=== PATIENT | male | born 1945 | race Caucasian/White ===

== ENCOUNTER 2017-09-15 10:49 | Observation (INO) | payer MEDICARE ==
[2017-09-15] VITALS (303 sets, daily range): BP systolic 112–136; BP diastolic 68–85; PULSE 55–70; TEMP 97.3–98.1; O2SAT 87–99
[~2017-09-15] VITALS: Ht 177.8 cm; Wt 108.0 kg
[2017-09-15] MEDS ORDERED: VITAMIN D 400400 IU PO (11:10)
[2017-09-15] MEDS ORDERED: NATURE'S BLEND500 M1 PO (11:10)
[2017-09-15] MEDS ORDERED: VITAMINC1000TA PO (11:10)
[2017-09-15] MEDS ORDERED: ASPIRIN 81M81 MG/TA2 PO (11:10)
[2017-09-15] MEDS ORDERED: VITAMIN B125000 MCG PO (11:11)
[2017-09-15] MEDS ORDERED: VITAMIN B11000 MCG/M IM (11:11)
[2017-09-15] MEDS ORDERED: NORCO 325 MG-101 TAB PO (11:13)
[2017-09-15] MEDS ORDERED: COLACE 100100 MG/CAP PO (11:13)
[2017-09-15] MEDS ORDERED: VITAMIN FLUSH-F1 CAP PO (11:14)
[2017-09-15] MEDS ORDERED: NATURAL POTASS595 MG PO (11:14)
[2017-09-15] MEDS ORDERED: ATIVAN 1MG T1 MG/TAB PO (11:14)
[2017-09-15] MEDS ORDERED: KRILL OIL 3001 EACH PO (11:14)
[2017-09-15] MEDS ORDERED: ADVIL200 MG PO (11:14)
[2017-09-15] MEDS ORDERED: PHARMASSURE SA160 MG PO (11:15)
[2017-09-15] MEDS ORDERED: VITAMIN A10k PO (11:16)
[2017-09-15] MEDS ORDERED: DEPO-TESTOS100 MG/ML IM (11:16)
[2017-09-15] MEDS ORDERED: ARMOUR THYROID60 MG PO (11:16)
[2017-09-15 11:19] LABS: BASO # 0.1 (0.0-0.2); BASO % 1.1 % (0.0-2.0); EOS # 0.3 (0.0-0.7); EOS % 5.1 % (0-4.0); GRAN # 3.9 (1.4-6.5); GRAN % 60.2 % (42.2-75.2); HEMATOCRIT 50.9 % (42.0-52.0); HEMOGLOBIN 17.6 g/dl (13.5-18.0); LYMPH # 1.7 (1.2-3.4); LYMPH % 26.7 % (20.0-51.0); MEAN CELL VOLUME 93 fl (80.0-100.0); MEAN CORPUSCULAR HEMOGLOBIN 32 pg (27.0-31.0); MEAN CORPUSCULAR HGB CONC 35 g/dl (33.0-37.0); MEAN PLATELET VOLUME 9.5 fl (7.4-10.4); MONO # 0.4 (0.1-0.6); MONO % 6.7 % (1.7-9.3); PLATELET COUNT 172 K/mm3 (130-400); PROTHROMBIN TIME 11.2 SECONDS (9.7-12.8); RED BLOOD COUNT 5.49 M/mm3 (4.20-5.60); REDCELL DISTRIBUTION WIDTH-CV 13.2 % (11.5-14.5)
[2017-09-15 11:24] LABS: BILIRUBIN,TOTAL 0.8 mg/dL (0.0-1.0); CALCIUM 9.6 mg/dL (8.4-10.2); CREATININE, serum 0.9 mg/dL (0.66-1.25); POTASSIUM 3.8 mmol/L (3.4-5.0); TOTAL PROTEIN 7.4 gm/dL (6.4-8.2)
[2017-09-15 11:35] LABS: TROPONIN-I 0.034 ng/mL (0.000-0.034)
[2017-09-15 16:02] LABS: HEMATOCRIT 45.3 % (42.0-52.0); MEAN CELL VOLUME 93 fl (80.0-100.0); MEAN CORPUSCULAR HEMOGLOBIN 32 pg (27.0-31.0); MEAN CORPUSCULAR HGB CONC 34 g/dl (33.0-37.0); MEAN PLATELET VOLUME 9.1 fl (7.4-10.4); PLATELET COUNT 147 K/mm3 (130-400); RED BLOOD COUNT 4.86 M/mm3 (4.20-5.60); REDCELL DISTRIBUTION WIDTH-CV 13.3 % (11.5-14.5)
[2017-09-15 16:03] LABS: HEMOGLOBIN 15.4 g/dl (13.5-18.0)
[2017-09-15 16:10] LABS: CALCIUM 8.7 mg/dL (8.4-10.2); CREATININE, serum 0.83 mg/dL (0.66-1.25); POTASSIUM 4.1 mmol/L (3.4-5.0)
[2017-09-16] VITALS (419 sets, daily range): BP systolic 117–136; BP diastolic 72–76; PULSE 52–55; TEMP 97.3–98.2; O2SAT 83–100
[2017-09-16 06:07] LABS: BASO # 0.1 (0.0-0.2); EOS # 0.3 (0.0-0.7); GRAN # 3.7 (1.4-6.5); GRAN % 62.1 % (42.2-75.2); HEMATOCRIT 45.4 % (42.0-52.0); LYMPH # 1.5 (1.2-3.4); LYMPH % 24.6 % (20.0-51.0); MEAN CELL VOLUME 95 fl (80.0-100.0); MEAN CORPUSCULAR HEMOGLOBIN 31 pg (27.0-31.0); MEAN CORPUSCULAR HGB CONC 33 g/dl (33.0-37.0); MEAN PLATELET VOLUME 9.2 fl (7.4-10.4); MONO # 0.4 (0.1-0.6); PLATELET COUNT 141 K/mm3 (130-400); RED BLOOD COUNT 4.79 M/mm3 (4.20-5.60); REDCELL DISTRIBUTION WIDTH-CV 13.3 % (11.5-14.5)
[2017-09-16 06:26] LABS: CALCIUM 8.5 mg/dL (8.4-10.2); CREATININE, serum 0.87 mg/dL (0.66-1.25)
[2017-09-16] MEDS ORDERED: PLAVIX 75MG TAB75 MG PO (10:18)
== END 2017-09-16 12:00 | disposition home or self-care (01) ==
LOC: COL.ER 10:49 → ICU 14:02
PROVIDERS: Emergency Medicine; Internal Medicine Cardiovascular Disease; Nurse Practitioner
DX: I25.110 Atherosclerotic heart disease of native coronary artery with unstable angina pectoris (principal); E78.00 Pure hypercholesterolemia, unspecified; I10 Essential (primary) hypertension; E78.5 Hyperlipidemia, unspecified; J44.9 Chronic obstructive pulmonary disease, unspecified; Z88.1 Allergy status to other antibiotic agents; Z88.8 Allergy status to other drugs, medicaments and biological substances; Z96.653 Presence of artificial knee joint, bilateral; Z98.52 Vasectomy status; Z79.82 Long term (current) use of aspirin; Z82.49 Family history of ischemic heart disease and other diseases of the circulatory system
CPT/HCPCS: OP; C1725; C1769; C1876; C1887; G0378; J0583; J1644; J2250; J3010; Q9967

== ENCOUNTER 2018-05-08 08:02 | Day surgery (SDC) | payer MEDICARE ==
[2018-05-08] VITALS (12 sets, daily range): BP systolic 118–138; BP diastolic 61–80; PULSE 56–75; TEMP 96.8
[~2018-05-08] VITALS: Ht 177.8 cm; Wt 111.0 kg
[~2018-05-08 08:02] MED LIST: ADVIL200 MG PO; ARMOUR THYROID60 MG PO; ASPIRIN 81M81 MG/TA2 PO; ATIVAN 1MG T1 MG/TAB PO; COLACE 100100 MG/CAP PO; DEPO-TESTOS100 MG/ML IM; KRILL OIL 3001 EACH PO; NATURAL POTASS595 MG PO; NATURE'S BLEND500 M1 PO; NORCO 325 MG-101 TAB PO; PHARMASSURE SA160 MG PO; PLAVIX 75MG TAB75 MG PO; VITAMIN A10k PO; VITAMIN B11000 MCG/M IM; VITAMIN B125000 MCG PO; VITAMIN D 400400 IU PO; VITAMIN FLUSH-F1 CAP PO; VITAMINC1000TA PO
[2018-05-08 08:37] LABS: HEMATOCRIT 46.4 % (42.0-52.0); HEMOGLOBIN 15.5 g/dl (13.5-18.0); MEAN CELL VOLUME 95 fl (80.0-100.0); MEAN CORPUSCULAR HEMOGLOBIN 32 pg (27.0-31.0); MEAN CORPUSCULAR HGB CONC 33 g/dl (33.0-37.0); MEAN PLATELET VOLUME 9.3 fl (7.4-10.4); PLATELET COUNT 176 K/mm3 (130-400); RED BLOOD COUNT 4.91 M/mm3 (4.20-5.60); REDCELL DISTRIBUTION WIDTH-CV 13.1 % (11.5-14.5)
[2018-05-08] MEDS ORDERED: ALEVE 220MG220 MG PO (08:43)
[2018-05-08] MEDS ORDERED: NATURAL POTASS595 MG PO (08:45)
[2018-05-08 08:49] LABS: PROTHROMBIN TIME 11.5 SECONDS (9.7-12.8)
[2018-05-08] MEDS ORDERED: LOPRESSOR 225 MG/TAB PO (08:49)
[2018-05-08] MEDS ORDERED: IMDUR 30MG30 MG/TAB PO (08:50)
[2018-05-08 08:52] LABS: CALCIUM 9.2 mg/dL (8.4-10.2); CREATININE, serum 0.93 mg/dL (0.66-1.25); POTASSIUM 4.2 mmol/L (3.4-5.0)
--- NOTE | 2018-05-08 10:50 | NUR ---
ALL MEDICATIONS GIVEN BY VERBAL ORDER WITH REABACK BY . SEE MERGE FOR ALL ADMIN TIMES. POSITIVE SYLVIA'S TEST IN RIGHT WRIST.
[2018-05-08] MEDS ORDERED: KRILL OIL 1,001 EAC1 PO (11:32)
--- NOTE | 2018-05-08 15:20 | NUR ---
R radial band removed, site remains C/D/I. Site covered with bandaid, gauze and coban. Pt sirena well.
--- NOTE | 2018-05-08 16:00 | NUR ---
Pt has ambulated, voided and sirena PO intake s n/v. PIV removed with catheter intact.
--- NOTE | 2018-05-08 16:10 | NUR ---
Pt discharged by nurse with friend.
== END 2018-05-08 17:47 | disposition home or self-care (01) ==
LOC: COL.CAR 08:02
PROVIDERS: Internal Medicine Cardiovascular Disease
DX: I25.110 Atherosclerotic heart disease of native coronary artery with unstable angina pectoris (principal); I10 Essential (primary) hypertension; J44.9 Chronic obstructive pulmonary disease, unspecified; E03.9 Hypothyroidism, unspecified; F41.9 Anxiety disorder, unspecified; E78.5 Hyperlipidemia, unspecified; Z86.73 Personal history of transient ischemic attack (TIA), and cerebral infarction without residual deficits
CPT/HCPCS: J1644; J2250; J3010; Q9967

== ENCOUNTER 2018-05-13 14:32 | Emergency (ER) | payer MEDICARE ==
[~2018-05-13] VITALS: Ht 177.8 cm; Wt 104.5 kg
[~2018-05-13 14:32] MED LIST changes: +ALEVE 220MG220 MG PO; +IMDUR 30MG30 MG/TAB PO; +KRILL OIL 1,001 EAC1 PO; +LOPRESSOR 225 MG/TAB PO
[2018-05-13 15:40] LABS: COLLECTION METHOD CLEAN CATCH
[2018-05-13 15:45] LABS: MUCOUS Present /lpf; PH 5 (5-8); SQUAMOUS EPITHELIAL None Seen /hpf; URINE APPEARANCE Clear; URINE BACTERIA None Seen /hpf; URINE BILIRUBIN Negative (NEGATIVE); URINE BLOOD Negative (NEGATIVE); URINE COLOR Yellow; URINE GLUCOSE 3+ (NEGATIVE); URINE KETONE Trace (NEGATIVE); URINE LEUKOCYTE ESTERASE Negative (NEGATIVE); URINE NITRATE Negative (NEGATIVE); URINE PROTEIN(semi-quant) Negative (NEGATIVE)
[2018-05-13 16:15] VITALS: BP 125/71; PULSE 73; TEMP 98.8
== END 2018-05-13 16:16 | disposition home or self-care (01) ==
LOC: COL.ER 14:32
PROVIDERS: Emergency Medicine
DX: S20.211A Contusion of right front wall of thorax, initial encounter (principal); I25.10 Atherosclerotic heart disease of native coronary artery without angina pectoris; Z79.82 Long term (current) use of aspirin; W19.XXXA Unspecified fall, initial encounter; Y92.009 Unspecified place in unspecified non-institutional (private) residence as the place of occurrence of the external cause

== ENCOUNTER 2018-06-28 11:22 | Emergency (ER) | payer MEDICARE, OTHER ==
[~2018-06-28] VITALS: Ht 177.8 cm; Wt 104.5 kg
[2018-06-28 11:29] VITALS: TEMP 98.4
[2018-06-28 12:09] LABS: BASO # 0.1 (0.0-0.2); BASO % 0.7 % (0.0-2.0); EOS # 0.4 (0.0-0.7); EOS % 5.5 % (0-4.0); GRAN # 4.6 (1.4-6.5); HEMATOCRIT 50.2 % (42.0-52.0); HEMOGLOBIN 16.4 g/dl (13.5-18.0); LYMPH # 1.2 (1.2-3.4); LYMPH % 17.6 % (20.0-51.0); MEAN CELL VOLUME 95 fl (80.0-100.0); MEAN CORPUSCULAR HEMOGLOBIN 31 pg (27.0-31.0); MEAN CORPUSCULAR HGB CONC 33 g/dl (33.0-37.0); MEAN PLATELET VOLUME 9.5 fl (7.4-10.4); MONO # 0.5 (0.1-0.6); MONO % 7.6 % (1.7-9.3); PLATELET COUNT 157 K/mm3 (130-400); RED BLOOD COUNT 5.28 M/mm3 (4.20-5.60); REDCELL DISTRIBUTION WIDTH-CV 14.2 % (11.5-14.5)
[2018-06-28] MEDS ORDERED: COUMADIN4 MG PO (12:13)
[2018-06-28] MEDS ORDERED: LOVENOX 100100 MG/ML SQ (12:13)
[2018-06-28 12:15] LABS: PARTIAL THROMBOPLASTIN TIME 36.5 SECONDS (26.0-37.0)
[2018-06-28 12:19] VITALS: BP 116/67; PULSE 73
[2018-06-28 12:22] LABS: ALBUMIN 4.2 gm/dL (3.5-5.0); BILIRUBIN,TOTAL 0.6 mg/dL (0.0-1.0); CALCIUM 9.7 mg/dL (8.4-10.2); CREATININE, serum 0.85 mg/dL (0.66-1.25); POTASSIUM 4.1 mmol/L (3.4-5.0); TOTAL PROTEIN 7.4 gm/dL (6.4-8.2)
[2018-06-28 12:31] LABS: TROPONIN-I 0.026 ng/mL (0.000-0.035)
== END 2018-06-28 13:32 | disposition home or self-care (01) ==
LOC: COL.ER 11:22
PROVIDERS: Family Medicine
DX: I82.401 Acute embolism and thrombosis of unspecified deep veins of right lower extremity (principal); I25.119 Atherosclerotic heart disease of native coronary artery with unspecified angina pectoris; I10 Essential (primary) hypertension; Z79.82 Long term (current) use of aspirin
CPT/HCPCS: J1650

== ENCOUNTER 2018-07-07 13:56 | Emergency (ER) | payer MEDICARE, OTHER ==
[~2018-07-07] VITALS: Ht 177.8 cm; Wt 106.8 kg
[~2018-07-07 13:56] MED LIST changes: +COUMADIN4 MG PO; +LOVENOX 100100 MG/ML SQ
[2018-07-07 14:13] VITALS: TEMP 96.7
[2018-07-07 14:22] LABS: BASO # 0.1 (0.0-0.2); BASO % 0.9 % (0.0-2.0); EOS # 0.4 (0.0-0.7); EOS % 4.3 % (0-4.0); GRAN # 5.8 (1.4-6.5); GRAN % 59.4 % (42.2-75.2); HEMATOCRIT 51.3 % (42.0-52.0); HEMOGLOBIN 16.9 g/dl (13.5-18.0); LYMPH # 2.5 (1.2-3.4); LYMPH % 25.9 % (20.0-51.0); MEAN CELL VOLUME 94 fl (80.0-100.0); MEAN CORPUSCULAR HEMOGLOBIN 31 pg (27.0-31.0); MEAN CORPUSCULAR HGB CONC 33 g/dl (33.0-37.0); MEAN PLATELET VOLUME 9.4 fl (7.4-10.4); MONO # 0.9 (0.1-0.6); MONO % 8.9 % (1.7-9.3); PLATELET COUNT 238 K/mm3 (130-400); RED BLOOD COUNT 5.45 M/mm3 (4.20-5.60); REDCELL DISTRIBUTION WIDTH-CV 14.3 % (11.5-14.5)
[2018-07-07 14:25] LABS: INR 1.4 (0.8-3.0)
[2018-07-07 14:27] LABS: PARTIAL THROMBOPLASTIN TIME 42.6 SECONDS (26.0-37.0)
[2018-07-07 14:42] LABS: ALBUMIN 4.3 gm/dL (3.5-5.0); BILIRUBIN,TOTAL 0.5 mg/dL (0.0-1.0); CALCIUM 9.2 mg/dL (8.4-10.2); CREATININE, serum 0.95 mg/dL (0.66-1.25); TOTAL PROTEIN 7.7 gm/dL (6.4-8.2)
[2018-07-07 15:00] VITALS: BP 126/75; PULSE 65
[2018-07-07 15:09] LABS: TROPONIN-I 1.03 ng/mL (0.000-0.035)
== END 2018-07-07 15:18 | disposition short-term general hospital (02) ==
LOC: COL.ER 13:56
PROVIDERS: Family Medicine
DX: I21.19 ST elevation (STEMI) myocardial infarction involving other coronary artery of inferior wall (principal); I10 Essential (primary) hypertension; I25.10 Atherosclerotic heart disease of native coronary artery without angina pectoris; Z86.718 Personal history of other venous thrombosis and embolism; Z79.01 Long term (current) use of anticoagulants
CPT/HCPCS: J1644; J3101